=== PATIENT | male | born 1950 | race Caucasian/White ===

== ENCOUNTER 2023-04-12 07:22 | Outpatient (CLI) | payer MEDICARE ==
[2023-04-12 07:50] LABS: BASOPHILS % (AUTO) 0.2 % (0-1); EOSINOPHILS # (AUTO) 0.2 X10'3 (0-0.9); EOSINOPHILS % (AUTO) 2.8 % (0-6); HEMATOCRIT 43.1 % (42.0-52.0); HEMOGLOBIN 14.3 g/dl (14.0-17.9); LYMPHOCYTES # (AUTO) 1.4 X10'3 (1.1-4.8); LYMPHOCYTES % (AUTO) 19.6 % (21-51); MEAN CORPUSCULAR HEMOGLOBIN 26.9 PG (27.0-31.0); MEAN CORPUSCULAR HGB CONC 33.1 g/dL (33.0-36.5); MEAN CORPUSCULAR VOLUME 81.4 FL (78-98); MEAN PLATELET VOLUME 8.7 FL (7.4-10.4); MONOCYTES # (AUTO) 0.7 X10'3 (0-0.9); MONOCYTES % (AUTO) 9.6 % (2-12); NEUTROPHILS # (AUTO) 4.9 X10'3 (1.8-7.7); NEUTROPHILS % (AUTO) 67.8 % (42-75); PLATELET COUNT 201 X10'3 (140-440); RED CELL DISTRIBUTION WIDTH 16.5 % (11.5-14.5); WHITE BLOOD COUNT 7.2 X10'3 (4.5-11.0)
[2023-04-12 08:03] LABS: APTT 27 SECONDS (22-32); INR 0.9 INR; PROTHROMBIN TIME 10.1 SECONDS (9.0-12.0)
[2023-04-12 08:05] LABS: ALANINE AMINOTRANSFERASE 38 U/L (12-78); ALBUMIN 3.7 G/DL (3.4-5.0); ALBUMIN/GLOBULIN RATIO 0.9 (1.1-1.5); ALKALINE PHOSPHATASE 68 IU/L (46-116); ANION GAP 9 (8-16); ASPARTATE AMINO TRANSFERASE 32 U/L (10-37); BILIRUBIN,TOTAL 0.3 MG/DL (0.1-1.0); BLOOD UREA NITROGEN 13 MG/DL (7-18); BUN/CREATININE RATIO 12.4 (10.0-20.0); CALCIUM 9.6 MG/DL (8.5-10.1); CHLORIDE 102 MMOL/L (99-107); CREATININE 1.05 MG/DL (0.60-1.10); GLUCOSE 123 MG/DL (70-104); POTASSIUM 4.1 MMOL/L (3.5-5.1); SODIUM 140 MMOL/L (135-145); TOTAL CARBON DIOXIDE 28.7 MMOL/L (24-32); TOTAL PROTEIN 7.8 G/DL (6.4-8.2); eGFR 70 ML/MIN
[2023-04-12] MEDS ORDERED: IODIXANOL 320 MG/ML INFUS..BTL 100ML IV ONE (08:19)
== END 2023-04-12 23:59 | disposition home or self-care (01) ==
LOC: RAD 07:22
PROVIDERS: ATTEND Student in an Organized Health Care Education/Training Program
DX: I48.91 Unspecified atrial fibrillation (principal); I48.92 Unspecified atrial flutter; Z95.1 Presence of aortocoronary bypass graft
CPT/HCPCS: 36415; 75572; 80053; 85025; 85610; 85730; J3490; Q9967

== ENCOUNTER 2023-04-29 05:23 | Day surgery (SDC) | payer MEDICARE ==
[2023-04-21 12:25] LABS: BASOPHILS % (AUTO) 0.4 % (0-1); EOSINOPHILS # (AUTO) 0.1 X10'3 (0-0.9); EOSINOPHILS % (AUTO) 1.5 % (0-6); LYMPHOCYTES # (AUTO) 1.6 X10'3 (1.1-4.8); LYMPHOCYTES % (AUTO) 19.2 % (21-51); MEAN CORPUSCULAR HEMOGLOBIN 26.9 PG (27.0-31.0); MEAN CORPUSCULAR HGB CONC 33.2 g/dL (33.0-36.5); MEAN CORPUSCULAR VOLUME 81.1 FL (78-98); MEAN PLATELET VOLUME 8.7 FL (7.4-10.4); MONOCYTES # (AUTO) 0.7 X10'3 (0-0.9); MONOCYTES % (AUTO) 8.8 % (2-12); NEUTROPHILS # (AUTO) 5.8 X10'3 (1.8-7.7); NEUTROPHILS % (AUTO) 70.1 % (42-75); PRE OP HEMATOCRIT 43.9 % (42.0-52.0); PRE OP HEMOGLOBIN 14.6 g/dL (14.0-17.9); PRE OP PLATELET COUNT 245 X10'3 (140-440); PRE OP WHITE BLOOD COUNT 8.2 10'3 (4.8-10.8); RED BLOOD COUNT 5.41 X10'6 (4.70-6.10); RED CELL DISTRIBUTION WIDTH 16.3 % (11.5-14.5)
[2023-04-21 12:27] LABS: BILIRUBIN,URINE NEGATIVE (Neg); CLARITY,URINE CLEAR (Clear); COLOR,URINE YELLOW (Yellow); GLUCOSE, URINE NEGATIVE (Neg); KETONES,URINE NEGATIVE (Neg); LEUKOCYTE ESTERASE ,URINE NEGATIVE (Neg); NITRITES, URINE NEGATIVE (Neg); OCCULT BLOOD,URINE TRACE-INTACT (Neg); PH,URINE 5.5 (4.8-8.0); PROTEIN,URINE NEGATIVE (Neg); UROBILINOGEN,URINE 0.2 E.U/dL (0.2-1.0)
[2023-04-21 12:36] LABS: PRE OP PROTIME 10.8 SECONDS (9.0-12.0)
[2023-04-21 12:42] LABS: ALBUMIN 3.8 G/DL (3.4-5.0); BLOOD UREA NITROGEN 12 MG/DL (7-18); BUN/CREATININE RATIO 9.4 (10.0-20.0); CALCIUM 9.6 MG/DL (8.5-10.1); CHLORIDE 100 MMOL/L (99-107); CREATININE 1.28 MG/DL (0.60-1.10); PRE OP ANION GAP 10 (8-16); PRE OP BILIRUB, TOTAL 0.5 MG/DL (0.0-1.0); PRE OP GLUCOSE 100 MG/DL (70-104); PRE OP POTASSIUM 3.6 MMOL/L (3.4-5.1); PRE OP SODIUM 139 MMOL/L (135-145); TOTAL CARBON DIOXIDE 28.9 MMOL/L (24-32); TOTAL PROTEIN 7.8 G/DL (6.4-8.2); UA COLLECTION TYPE CLN CATCH MIDSTREAM; eGFR 55 ML/MIN
[2023-04-21 12:43] LABS: ALKALINE PHOSPHATASE 72 IU/L (46-116); PRE OP ALT 49 U/L (30-65); PRE OP AST 44 U/L (10-37)
[2023-04-21 12:46] LABS: HYALINE CASTS 0-3 /LPF (NEGATIVE); MUCUS STRANDS MODERATE /LPF (Neg); SQUAMOUS EPITHELIAL CELL,UR FEW /LPF (FEW)
[2023-04-21 12:47] LABS: BACTERIA,URINE FEW /HPF (Neg); HEMOGLOBIN A1C 6.5 % (4.5-6.2); RBC,URINE 0-2 /HPF (0-2); WBC,URINE 0-4 /HPF (0-4)
[2023-04-21 12:48] LABS: TRANSITIONAL EPI CELLS,URINE FEW /HPF
[~2023-04-29] VITALS: Ht 180.3 cm; Wt 158.0 kg
[2023-04-29] VITALS (11 sets, daily range): BP systolic 116–136; BP diastolic 55–86; PULSE 73–92; RESP 11–17; TEMP 98.8; O2SAT 94–99
[~2023-04-29 05:23] MED LIST: ALBU6.7H14 INH; AMLO10TA PO; APIX5TAB3 PO; ASPI-612 PO; ATOR-2 PO; FOSI40TA71 PO; FURO-149 PO; METF-436 PO; NAPR-56 PO; OMEP20TA43 PO; ringers solution, lacted 1,000 ML IV SCH
[2023-04-29] MEDS ORDERED: vancomycin 1,500 MG in NS 300ml IV soln IV ONE (05:30)
[2023-04-29] MEDS ORDERED: famotidine 20mg tablet PO ONE (05:30)
[2023-04-29] MEDS ORDERED: albuterol 2.5 MG/3 ML nebule NEB ONE (05:30)
[2023-04-29] MEDS ORDERED: ceFAZolin inj. 3,000 MG in normal saline 100ml IV soln 100 ML IV ONE (05:30)
[2023-04-29] MEDS ORDERED: ondansetron/PF 4mg/2ml inj IV PRN ×2 (05:30→10:00)
[2023-04-29] MEDS ORDERED: LIDOcaine 1% 30ml preserv. free vial ONE (06:38)
[2023-04-29] MEDS ORDERED: LIDOcaine 1% (10mg/ml)w/preservative inj. 20ml MDV ONE (07:07)
[2023-04-29] MEDS ORDERED: iohexol 350 MG/ML 50ML vial IV ONE (07:07)
[2023-04-29] MEDS ORDERED: fentaNYL/PF 50MCG/1 ML 2ML syringe ONE (08:01)
[2023-04-29] MEDS ORDERED: midazolam 1 mg/ML 2ml injection ONE (08:01)
[2023-04-29] MEDS ORDERED: sevoflurane 250ml liquid IH ONE (08:07)
[2023-04-29] MEDS ORDERED: sugammadex 200mg/2ml injection IV ONE ×2 (08:38→08:39)
[2023-04-29] MEDS ORDERED: propofol inj 20 ML IV ONE (08:38)
[2023-04-29] MEDS ORDERED: rocuronium 10mg/ml inj IV ONE (08:38)
[2023-04-29] MEDS ORDERED: ringers solution, lacted 1,000 ML IV SCH (10:00)
[2023-04-29] MEDS ORDERED: morphine 2 MG/ML inj. syringe IV PRN (10:00)
[2023-04-29] MEDS ORDERED: meperidine/PF 25mg/ml syringe IV PRN ×3 (10:00)
[2023-04-29] MEDS ORDERED: proCHLORperazine 10 MG/2 ml inj IV PRN (10:00)
[2023-04-29] MEDS ORDERED: morphine 4 MG/ML inj SYRINge IV PRN (10:00)
== END 2023-04-29 10:22 | disposition home or self-care (01) ==
LOC: PAS IN 05:23 → UNDOADMIN 05:23 → OR 05:23 → PAS 05:30 → EDSTATUS 08:00 → UNDODISIN 10:22 → OR 10:22
PROVIDERS: ATTEND Student in an Organized Health Care Education/Training Program
DX: I48.91 Unspecified atrial fibrillation (principal); Z53.8 Procedure and treatment not carried out for other reasons; G47.33 Obstructive sleep apnea (adult) (pediatric); K21.9 Gastro-esophageal reflux disease without esophagitis; E78.5 Hyperlipidemia, unspecified; I25.2 Old myocardial infarction; I87.2 Venous insufficiency (chronic) (peripheral); I11.9 Hypertensive heart disease without heart failure; I25.810 Atherosclerosis of coronary artery bypass graft(s) without angina pectoris; E11.9 Type 2 diabetes mellitus without complications; E66.9 Obesity, unspecified; Z68.42 Body mass index [BMI] 45.0-49.9, adult; Z95.1 Presence of aortocoronary bypass graft; Z72.89 Other problems related to lifestyle; Z79.01 Long term (current) use of anticoagulants; Z79.84 Long term (current) use of oral hypoglycemic drugs; Z79.82 Long term (current) use of aspirin; Z98.890 Other specified postprocedural states
CPT/HCPCS: 36415; 71046; 80053; 81001; 82948; 83036; 85025; 85610; 85730; 86885; 86900; 86901; 86920; 87081; 93005; 93312; 93325; A6258; J0690; J1644; J2250; J2405; J2704; J3010; J3370; J3490; J7040; J7120; Q9967; Z7512; A4618; A6449